=== PATIENT | male | born 1955 | race Hispanic/Latino ===

== ENCOUNTER 2018-05-01 09:25 | Inpatient (IN) | payer OTHER ==
[2018-05-01] MEDS ORDERED: ZOFRAN IV ONE ×2 (09:38→12:09)
[2018-05-01] MEDS ORDERED: ZOFRAN ONE (09:39)
[2018-05-01 09:52] LABS: Basophils # (Auto) 0.1 K/mm3 (0.0-0.1); Basophils % (Auto) 1.1 % (0.0-1.8); Eosinophils # (Auto) 0.2 K/mm3 (0.0-0.4); Eosinophils % (Auto) 3.2 % (0.0-4.3); Hematocrit 48.6 % (35.5-45.6); Hemoglobin 16.7 gm/dl (11.8-15.2); Lymphocytes # (Auto) 2.5 K/mm3 (1.2-5.4); Lymphocytes % (Auto) 32.3 % (13.4-35.0); Mean Corpuscular HGB Conc 34 % (32-34); Mean Corpuscular Volume 93 fl (84-94); Monocytes # (Auto) 0.6 K/mm3 (0.0-0.8); Monocytes % (Auto) 7.9 % (0.0-7.3); Platelet Count 244 K/mm3 (140-440); Red Blood Count 5.24 M/mm3 (3.65-5.03); Red Cell Distribution Width 13.9 % (13.2-15.2)
[2018-05-01 10:12] LABS: BUN/Creatinine Ratio 12; Blood Urea Nitrogen 7 mg/dL (9-20); Calcium 9.4 mg/dL (8.4-10.2); Hemolysis Index 63
[2018-05-01 10:16] LABS: Alanine Aminotransferase 17 units/L (7-56); Albumin 4.5 g/dL (3.9-5)
--- NOTE | 2018-05-01 10:17 | XRay Report ---
Single view chest: History: Hypertension. Findings: Normal cardiomediastinal silhouette. Trachea is midline. No consolidation, pneumothorax or pleural effusion. Impression: No acute cardiopulmonary findings.
[2018-05-01 10:18] LABS: Bilirubin,Direct < 0.2 mg/dL (0-0.2); INR 0.87 (0.87-1.13); Partial Thromboplastin Time 33.2 Sec. (24.2-36.6)
[2018-05-01] MEDS ORDERED: REGLAN ONE (10:56)
[2018-05-01] MEDS ORDERED: REGLAN IV ONE ×2 (10:58→12:09)
--- NOTE | 2018-05-01 11:48 | Cat Scan Report ---
CTA of neck and CTA of head: History: Left periorbital pain and facial tingling. Findings: The left subclavian origin is from the arch of the aorta and the right subclavian from the innominate. Bilaterally origin and course of vertebral arteries appears normal. Vertebral arteries originate from subclavian. Origin and course of right and left common carotid artery appears normal. The bulbs appears unremarkable with mild calcification along the outer wall. The proximal right and left internal carotid artery are tortuous however no stenosis or plaque formation is seen. The intracavernous portion of the internal carotid artery and the supraclinoid appears normal. Right and left middle cerebral and anterior cerebral and basilar artery appears unremarkable. Impression: No evidence of significant stenoses or plaque formation at the common, internal carotid, vertebral and cerebral arteries.
[2018-05-01] MEDS ORDERED: ZOFRAN IV PRN (11:55)
[2018-05-01] MEDS ORDERED: DULCOLAX PR PRN (11:55)
[2018-05-01] MEDS ORDERED: MILK OF MAGNESIA PO PRN (11:55)
[2018-05-01] MEDS ORDERED: REGLAN PO PRN (11:55)
[2018-05-01] MEDS ORDERED: PHENERGAN PR PRN (11:55)
[2018-05-01] MEDS ORDERED: TYLENOL PO PRN (11:55)
--- NOTE | 2018-05-01 11:55 | Cat Scan Report ---
CT scan of head without IV contrast: History: Neuro deficits. Findings: Ventricles are normal in size and midline in location. No evidence of acute each kidney, hemorrhage or mass. No extra-axial fluid collection. Normal brainstem and cerebellum. Normal sinuses. Impression: No acute intracranial abnormality.
--- NOTE | 2018-05-01 11:58 | History and Physical Report ---
History of Present Illness Chief complaint: Im weak, and i cant walk History of present illness: 62 YO Male with Obesity, Nicotine Dependence, HTN, DM, HBV presents to ED for evaluation. Pt states that he was in his usual state of health as bedtime which was around 2000 hrs. Upon awaking from sleep this morning around 0230 hrs with Left facial weakness, slurred speech, headache, as well as difficulty with ambulation. Pt reports that he had similar symptoms 2 days ago. EMS was later notified, and upon arrival the patient was found to have neurologic deficits. A code stroke was called and the patient transported to [facility]. Pt seen and evaluated in ED and found to have symptoms consistent with CVA. Pt admitted to telemetry and initiated on CVA protocol. Neurology consulted in ED. Teleneurology consulted. Pt is outside therapeutic window to TPA at time of my exam. Past History Past Medical History: diabetes, hepatitis, hypertension Past Surgical History: Other (Right Leg surgery) Social history: , smoking Family history: diabetes, hypertension Medications and Allergies Allergies Allergy/AdvReac Type Severity Reaction Status Date / Time No Known Allergies Allergy Verified 05/01/18 09:27 Home Medications Medication Instructions Recorded Confirmed Last Taken Type Aspirin [Aspirin BABY CHEW TAB] 81 mg PO QDAY 12/21/12 05/01/18 05/01/18 History Gabapentin 300 mg PO TID 05/01/18 05/01/18 Unknown History Losartan [Cozaar] 25 mg PO QDAY 05/01/18 05/01/18 05/01/18 History Review of Systems Constitutional: no weight loss, no weight gain, no fever, no chills Ears, nose, mouth and throat: no ear pain, no ear discharge, no tinnitis, no decreased hearing, no nose pain, no nasal congestion Cardiovascular: no chest pain, no orthopnea, no palpitations, no rapid/irregular heart beat, no edema, no syncope Respiratory: no cough, no cough with sputum, no excessive sputum, no hemoptysis, no shortness of breath Gastrointestinal: nausea, no abdominal pain, no vomiting, no diarrhea Genitourinary Male: no hematuria, no flank pain, no discharge, no urinary frequency, no urinary hesitancy Rectal: no pain, no incontinence, no bleeding Musculoskeletal: no neck pain, no shooting arm pain, no arm numbness/tingling, no low back pain Integumentary: no rash, no pruritis, no redness, no sores, no wounds Neurological: weakness, ataxia, lack of coordination, headaches, change in speech, gait dysfunction, motor disturbance Psychiatric: anxiety, no memory loss, no change in sleep habits, no sleep disturbances, no insomnia Endocrine: no cold intolerance, no heat intolerance, no polyphagia, no excessive thirst, no polydipsia Hematologic/Lymphatic: no easy bruising, no easy bleeding, no lymphadenopathy, no lymphedema Allergic/Immunologic: no urticaria, no allergic rhinitis, no wheezing, no persistent infections, no anaphylaxis Exam - Constitutional Vitals: Temp Pulse Resp BP Pulse Ox 98 F 60 16 147/79 100 05/01/18 11:00 05/01/18 11:00 05/01/18 11:00 05/01/18 11:00 05/01/18 11:00 General appearance: Present: mild distress - EENT Eyes: Present: PERRL ENT: hearing intact, clear oral mucosa - Neck Neck: Present: supple, normal ROM - Respiratory Respiratory effort: normal Respiratory: bilateral: CTA - Cardiovascular Heart Sounds: Present: S1 & S2. Absent: rub, click - Extremities Extremities: pulses symmetrical, No edema Peripheral Pulses: within normal limits - Abdominal General gastrointestinal: Present: soft, non-tender, non-distended, normal bowel sounds Male genitourinary: Present: normal - Integumentary Integumentary: Present: clear, warm, dry - Musculoskeletal Musculoskeletal: generalized weakness - Psychiatric Psychiatric: appropriate mood/affect, intact judgment & insight - Neurologic Neurologic: CNII-XII intact, moves all extremities, no gait normal Results - Labs CBC & Chem 7: 05/01/18 09:37 05/01/18 09:37 Labs: Abnormal lab results 05/01/18 05/01/18 Range/Units 09:37 09:37 RBC 5.24 H (3.65-5.03) M/mm3 Hgb 16.7 H (11.8-15.2) gm/dl Hct 48.6 H (35.5-45.6) % [place] % (Auto) 7.9 H (0.0-7.3) % BUN 7 L (9-20) mg/dL Creatinine 0.6 L (0.8-1.5) mg/dL Glucose 110 H (75-100) mg/dL Assessment and Plan - Patient Problems (1) CVA (cerebral vascular accident) Current Visit: Yes Status: Acute Qualifiers: Precerebral and cerebral artery: middle cerebral artery Laterality of affected vessel: left Plan to address problem: Admit to telemetry: CT head, MRI Brain, MRA Brain, Echo, Carotid Doppler, statin therapy, Lipid panel, PT/OT/ Speech, antiplatelet therapy, (2) HTN (hypertension) Current Visit: Yes Status: Acute Qualifiers: Hypertension type: essential hypertension Qualified Code(s): I10 - Essential (primary) hypertension Plan to address problem: Monitor BP q shift, permissive hypertension overnight. (3) Diabetes Current Visit: Yes Status: Acute Plan to address problem: ADA diet, insulin, accu check (4) Hepatitis Current Visit: Yes Status: Acute Plan to address problem: Outpatient GI F/U. (5) DVT prophylaxis Current Visit: Yes Status: Acute Plan to address problem: SCD to BLE while in bed.
[2018-05-01] MEDS ORDERED: ATIVAN IV PRN (12:10)
--- NOTE | 2018-05-01 12:34 | Emergency Department Report ---
ED Neuro Deficit HPI - General Chief Complaint: Neuro Symptoms/Deficit Stated Complaint: POSS STROKE Time Seen by Provider: 05/01/18 09:29 Source: patient, EMS Mode of arrival: Stretcher Limitations: No Limitations - History of Present Illness Initial Comments: 62-year-old male who I called a code stroke on based on his EMS report. He was hypertensive in the field. He had a headache. There was question of a bystander or family member thinking he had left facial weakness. He had difficulty walking this was based on the EMS report. The patient arrived at this facility awake and able to provide a reasonably detailed detailed history. He was bit anxious. However he stated to me that he had persistent left retro-orbital orbital type pain. He denied prior history of migraine. He states that he had similar pain 2 days ago (on Sunday). He has not had previous headaches like this before. This morning he awoke at about 2:30 with similar headache pain. It was moderate in intensity. He got out of bed at about that time and noted he was having some difficulty walking and felt like he was not well coordinated. He admitted some facial tingling but was not aware of any tripping. He denied any polo upper or lower extremity weakness. He had no peripheral sensory symptoms. He denied visual change. Patient has a history of hepatitis B which was acute and he was hospitalized here for the same. He has a history of hypertension. His compliance with medication seems somewhat questionable. He states he's been following up with the [facility]. He states he was told that his liver function has returned to normal. He has no prior history of stroke. No family history of aneurysm. -: Gradual, days(s) Location: left face (paresthesia) History of same: No Place: home Quality: tingling Improves With: none Worsens With: none On Anticoagulants: No Context: other (hypertension) Associated Symptoms: denies other symptoms (except nausea), nausea/vomiting Treatments Prior to Arrival: none - Related Data Home Medications: Home Medications Medication Instructions Recorded Confirmed Last Taken Aspirin [Aspirin BABY CHEW TAB] 81 mg PO QDAY 12/21/12 05/01/18 05/01/18 Gabapentin 300 mg PO TID 05/01/18 05/01/18 Unknown Losartan [Cozaar] 25 mg PO QDAY 05/01/18 05/01/18 05/01/18 Allergies/Adverse Reactions: Allergies Allergy/AdvReac Type Severity Reaction Status Date / Time No Known Allergies Allergy Verified 05/01/18 09:27 ED Review of Systems ROS: Stated complaint: POSS STROKE Other details as noted in HPI Constitutional: denies: chills, fever Eyes: denies: eye pain, eye discharge, vision change ENT: denies: ear pain, throat pain Respiratory: denies: cough, shortness of breath, wheezing Cardiovascular: denies: chest pain, palpitations Endocrine: no symptoms reported Gastrointestinal: denies: abdominal pain, nausea, diarrhea Genitourinary: denies: urgency, dysuria Musculoskeletal: denies: back pain, joint swelling, arthralgia Skin: denies: rash, lesions Neurological: headache, paresthesias, abnormal gait. denies: weakness Psychiatric: denies: anxiety, depression Hematological/Lymphatic: denies: easy bleeding, easy bruising ED Past Medical Hx - Past Medical History Previous Medical History?: Yes Hx Hypertension: Yes Hx Congestive Heart Failure: No Hx Diabetes: Yes Hx Asthma: No Hx COPD: No Hx HIV: No Additional medical history: Joint pain - Surgical History Past Surgical History?: Yes Additional Surgical History: repair fx r) leg - Social History Smoking Status: Current Every Day Smoker Substance Use Type: Alcohol - Medications Home Medications: Home Medications Medication Instructions Recorded Confirmed Last Taken Type Aspirin [Aspirin BABY CHEW TAB] 81 mg PO QDAY 12/21/12 05/01/18 05/01/18 History Gabapentin 300 mg PO TID 05/01/18 05/01/18 Unknown History Losartan [Cozaar] 25 mg PO QDAY 05/01/18 05/01/18 05/01/18 History ED Neuro Physical Exam - General Limitations: No Limitations General appearance: alert, anxious Suspected Stroke: Yes - Head Head exam: Present: atraumatic, normocephalic - Eye Eye exam: Present: normal appearance, PERRL, EOMI - ENT ENT exam: Present: mucous membranes moist - Neck Neck exam: Present: normal inspection. Absent: tenderness, meningismus - Respiratory Respiratory exam: Present: normal lung sounds bilaterally. Absent: respiratory distress - Cardiovascular Cardiovascular Exam: Present: regular rate, normal rhythm. Absent: systolic murmur, diastolic murmur, rubs, gallop - GI/Abdominal GI/Abdominal exam: Present: soft, normal bowel sounds. Absent: distended, tenderness, guarding, rebound, rigid - Rectal Rectal exam: Present: deferred - Extremities Exam Extremities exam: Present: normal inspection - Back Exam Back exam: Present: normal inspection - Neurological Exam Neurological exam: Present: alert, oriented X3, CN II-XII intact, other (gait not test). Absent: motor sensory deficit - NIHSS Assessment Interval: Baseline 1a. Level of Consciousness: alert/keenly responsive 1b. LOC Questions: answers both correctly 1c. LOC Commands: performs tasks correctly 2. Best Gaze: normal 3. Visual: no visual loss 4. Facial Palsy: normal symmetrical movement 5b. Motor Arm Right: no drift 5a. Motor Arm Left: no drift 6a. Motor Leg Left: no drift 6b. Motor Leg Right: no drift 7. Limb Ataxia: present 1 limb (mild dysmetria) 8. Sensory: normal 9. Best Language: no aphasia 10. Dysarthria: normal 11. Extinction/Inattention: no abnormality (questionably dysmetric) Total Score: 1 Stroke Severity: Minor Stroke - Psychiatric Psychiatric exam: Present: normal affect, anxious - Skin Skin exam: Present: warm, dry, intact, normal color. Absent: rash ED Course Vital Signs 05/01/18 05/01/18 09:25 11:00 Temperature 98.6 F 98 F Pulse Rate 60 60 Respiratory 16 16 Rate Blood Pressure 162/74 Blood Pressure 147/79 [Right] O2 Sat by Pulse 100 100 Oximetry - Lab Data Result diagrams: 05/01/18 09:37 05/01/18 09:37 Lab Results 05/01/18 05/01/18 05/01/18 Range/Units 09:37 09:37 09:37 WBC 7.7 (4.5-11.0) K/mm3 RBC 5.24 H (3.65-5.03) M/mm3 Hgb 16.7 H (11.8-15.2) gm/dl Hct 48.6 H (35.5-45.6) % MCV 93 (84-94) fl MCH 32 (28-32) pg MCHC 34 (32-34) % RDW 13.9 (13.2-15.2) % Plt Count 244 (140-440) K/mm3 Lymph % (Auto) 32.3 (13.4-35.0) % [place] % (Auto) 7.9 H (0.0-7.3) % Eos % (Auto) 3.2 (0.0-4.3) % Baso % (Auto) 1.1 (0.0-1.8) % Lymph # 2.5 (1.2-5.4) K/mm3 [place] # 0.6 (0.0-0.8) K/mm3 Eos # 0.2 (0.0-0.4) K/mm3 Baso # 0.1 (0.0-0.1) K/mm3 Seg Neutrophils % 55.5 (40.0-70.0) % Seg Neutrophils # 4.3 (1.8-7.7) K/mm3 PT 12.4 (12.2-14.9) Sec. INR 0.87 (0.87-1.13) APTT 33.2 (24.2-36.6) Sec. Thrombin Time (15.1-19.6) Sec. Sodium 142 (137-145) mmol/L Potassium 4.9 (3.6-5.0) mmol/L Chloride 104.0 (98-107) mmol/L Carbon Dioxide 23 (22-30) mmol/L Anion Gap 20 mmol/L BUN 7 L (9-20) mg/dL Creatinine 0.6 L (0.8-1.5) mg/dL Estimated GFR > 60 ml/min BUN/Creatinine Ratio 12 % Glucose 110 H (75-100) mg/dL Calcium 9.4 (8.4-10.2) mg/dL Magnesium (1.7-2.3) mg/dL Total Bilirubin (0.1-1.2) mg/dL Direct Bilirubin (0-0.2) mg/dL AST (5-40) units/L ALT (7-56) units/L Alkaline Phosphatase (35-129) units/L Ammonia (25-60) umol/L Troponin T < 0.010 (0.00-0.029) ng/mL NT-Pro-B Natriuret Pep (0-900) pg/mL Total Protein (6.3-8.2) g/dL Albumin (3.9-5) g/dL Albumin/Globulin Ratio % 05/01/18 05/01/18 05/01/18 Range/Units 09:37 09:37 09:37 WBC (4.5-11.0) K/mm3 RBC (3.65-5.03) M/mm3 Hgb (11.8-15.2) gm/dl Hct (35.5-45.6) % MCV (84-94) fl MCH (28-32) pg MCHC (32-34) % RDW (13.2-15.2) % Plt Count (140-440) K/mm3 Lymph % (Auto) (13.4-35.0) % [place] % (Auto) (0.0-7.3) % Eos % (Auto) (0.0-4.3) % Baso % (Auto) (0.0-1.8) % Lymph # (1.2-5.4) K/mm3 [place] # (0.0-0.8) K/mm3 Eos # (0.0-0.4) K/mm3 Baso # (0.0-0.1) K/mm3 Seg Neutrophils % (40.0-70.0) % Seg Neutrophils # (1.8-7.7) K/mm3 PT (12.2-14.9) Sec. INR (0.87-1.13) APTT (24.2-36.6) Sec. Thrombin Time 17.5 (15.1-19.6) Sec. Sodium (137-145) mmol/L Potassium (3.6-5.0) mmol/L Chloride (98-107) mmol/L Carbon Dioxide (22-30) mmol/L Anion Gap mmol/L BUN (9-20) mg/dL Creatinine (0.8-1.5) mg/dL Estimated GFR ml/min BUN/Creatinine Ratio % Glucose (75-100) mg/dL Calcium (8.4-10.2) mg/dL Magnesium 1.90 (1.7-2.3) mg/dL Total Bilirubin 0.30 (0.1-1.2) mg/dL Direct Bilirubin < 0.2 (0-0.2) mg/dL AST 22 (5-40) units/L ALT 17 (7-56) units/L Alkaline Phosphatase 83 (35-129) units/L Ammonia 47.0 (25-60) umol/L Troponin T (0.00-0.029) ng/mL NT-Pro-B Natriuret Pep 46.41 (0-900) pg/mL Total Protein 7.4 (6.3-8.2) g/dL Albumin 4.5 (3.9-5) g/dL Albumin/Globulin Ratio 1.6 % - EKG Data -: EKG Interpreted by Me EKG shows normal: sinus rhythm, axis, intervals, QRS complexes, ST-T waves Rate: bradycardia Interpretation: no acute changes - Radiology Data Radiology results: report reviewed (CT of the head normal per Dr. Buenrostro, CT and she had a head and neck normal per Dr. Buenrostro) - Medical Decision Making I discussed this case in detail with the tele neurologist food and nutrition services assistant. They stated the patient was not a TPA candidate. I certainly concur. He is outside the window for intravenous TPA clearly. It is a possibility that he may have had a stroke to affect his history circulation. An atypical migraine was considered. A cerebral aneurysm was considered. Vascular abnormality was reasonably exclude with angiography. The patient was admitted to Dr. Wilkinson's service for further care and stroke evaluation. He did have some intractable nausea here in the emergency department. However, his blood pressure did not reach a level where reduction was appropriate. - Thrombolytic Inclusion/Exclusion Thrombolytic Exclusion Criteria: Symptom Onset > 3 Hours (greater than 6 hours) Critical Care Time: Yes Critical care time in (mins) excluding proc time.: 70 Critical care attestation.: If time is entered above; I have spent that time in minutes in the direct care of this critically ill patient, excluding procedure time. ED Disposition Clinical Impression: Gait disturbance Cephalalgia Qualifiers: Headache type: unspecified Headache chronicity pattern: acute headache Intractability: intractable Qualified Code(s): R51 - Headache Intractable nausea and vomiting Qualifiers: Vomiting type: unspecified Qualified Code(s): R11.2 - Nausea with vomiting, u nspecified Disposition: 09 OP ADMIT IP TO THIS HOSP Is pt being admited?: Yes Does the pt Need Aspirin: Yes Condition: Stable Referrals: PRADIP MASON MD [Primary Care Provider] - 3-5 Days Time of Disposition: 12:42
[2018-05-01] MEDS ORDERED: ATIVAN ONE (13:01)
[2018-05-01] MEDS ORDERED: NON-FORMULARY (Gabapentin 300 MG) PO SCH (14:00)
--- NOTE | 2018-05-01 14:48 | XRay Report ---
Abdomen 2 views: History: Nausea. Findings: Minimal air in small and large bowel. No free intraperitoneal air. Contrast in collecting system of kidneys and bladder from previous CT study. No hydronephrosis. Impression: Essentially negative study.
--- NOTE | 2018-05-01 14:53 | Magnetic Resonance Report ---
MRI BRAIN WITHOUT CONTRAST: 05/01/18 11:55:00 CLINICAL: Stroke. TECHNIQUE: Axial diffusion, T1, T2, gradient echo T2*, coronal and axial FLAIR and sagittal T1 sequences on a 1.5 Katina magnet. FINDINGS: Motion degrades the quality the exam on some of the sequences. The ventricles and sulci are slightly large for age. No restricted diffusion. Mild bilateral multifocal subcortical white matter hyperintensities on FLAIR and T2. No other abnormal signal. No microbleeds on the gradient-echo sequence. No mass or mass effect. No hemorrhage, edema or extra-axial collection. Normal pituitary and optic chiasm. The brainstem and cerebellum are normal. Intact vascular flow voids. Normal sinuses. The orbits, and soft tissues are normal. Normal calvarium and skull base. IMPRESSION: No acute change. Mild global cortical atrophy and mild bilateral nonspecific multifocal white matter hyperintensities on FLAIR and T2.
--- NOTE | 2018-05-01 14:55 | Magnetic Resonance Report ---
MRA HEAD WITHOUT CONTRAST: 05/01/18 11:55:00 CLINICAL: Stroke. TECHNIQUE: Axial 3-D [id number] MR angiography of the [place] with review of axial source images. FINDINGS: Mild motion degrades the quality of the exam. Intact [place] with no aneurysm, stenosis or occlusion. Symmetric blood flow in the anterior, middle and posterior cerebral arteries. Normal basilar and vertebral arteries. IMPRESSION: Normal study.
--- NOTE | 2018-05-01 15:00 | Vascular Lab Report ---
PROCEDURE: VL CAROTID DUPLEX BILAT TECHNIQUE: Duplex Doppler ultrasound of the common, internal and external carotid arteries and the v ertebral arteries was performed bilaterally. Carlson scale imaging, velocity spectral waveform analysis, and color flow Doppler were employed. HISTORY: stroke COMPARISONS: None . Note: Measurement of carotid stenosis is based on flow velocity values that correlate with the [place] Symptomatic Carotid Endarterectomy Trial (NASCET) based stenosis criteria using the internal carotid artery diameter as the denominator for stenosis calculation. FINDINGS: RIGHT carotid artery: Velocities: ICA PSV: 91 cm/sec ICA End diastolic: 34 cm/sec CCA PSV: 116 cm/sec IC/CC ratio: 0. 78 Plaque/color flow: Mild heterogeneous plaque without significant spectral broadening or abnormal col or flow . Stenosis less than 50%. RIGHT vertebral artery: Antegrade systolic and diastolic flow LEFT carotid artery: Velocities: ICA PSV: 82 cm/sec ICA End diastolic: 35 cm/sec CCA PSV: 101 cm/sec IC/CC ratio: 0. 81 Plaque/color flow: Mild heterogeneous plaque without significant spectral broadening or abnormal col or flow . Stenosis less than 50%. LEFT vertebral artery: Antegrade systolic and diastolic flow IMPRESSION: 1. RIGHT carotid: No hemodynamically significant (less than 50 percent) internal carotid artery hayley nosis. 2. LEFT carotid: No hemodynamically significant (less than 50 percent) internal carotid artery sten osis. 3. Vertebral arteries: Bilaterally antegrade. This document is electronically signed by Julian Pantoja MD., May 01 2018 02:57:39 PM ET
[2018-05-01] MEDS: NEURONTIN PO SCH ×2 (17:05→21:08)
--- NOTE | 2018-05-01 19:53 | Consultation ---
History of Present Illness Consult date: 05/01/18 Requesting physician: DARIN RASHEED Reason for Consult: eye pain, imbalance, left dysmetria and left V2,3 numbness History of present illness: This 62 year old rt. handed male presented to ER this a.m. having awakened from sleep with severe left eye pain. He then noticed that he had a great deal of trouble arising from bed as he was dizzy and felt like falling. With the dizziness he also noted nausea and vomiting, as well as numbness of the left face, cheek and chin. He then noted that he could not get his left arm to coordinate properly. The eye pain resolved, but nausea, vomiting and dizziness continue as well as facial numbness. Pt.'s feels that it has progressed, as he cannot stand up on his own. The pt. has a history of hypertension. He was taking ASA 81 mg daily until 2 weeks ago when he saw his doctor at the [facility] who ordered Valsartan for his blood pressure. He then stopped the ASA in the a.m. in favor of the BP med. The patient's father had several strokes. The pt. is also a 40 pack year smoker. There is no history of recent head trauma or accident. Past History Past Medical History: diabetes, hepatitis, hypertension Past Surgical History: Other (Right Leg surgery) Social history: , smoking Family history: cancer, diabetes, hypertension, stroke Medications and Allergies Allergies Allergy/AdvReac Type Severity Reaction Status Date / Time No Known Allergies Allergy Verified 05/01/18 09:27 Home Medications Medication Instructions Recorded Confirmed Last Taken Type Aspirin [Aspirin BABY CHEW TAB] 81 mg PO QDAY 12/21/12 05/01/18 05/01/18 History Gabapentin 300 mg PO TID 05/01/18 05/01/18 Unknown History Losartan [Cozaar] 25 mg PO QDAY 05/01/18 05/01/18 05/01/18 History Active Meds: Active Medications Acetaminophen (Tylenol) 650 mg PO Q4H PRN PRN Reason: Pain, Mild (1-3) Aspirin (Aspirin) 325 mg PO QDAY TRACY Atorvastatin Calcium (Lipitor) 40 mg PO QHS TRACY Bisacodyl (Dulcolax) 10 mg NV QDAY PRN PRN Reason: Constipation Gabapentin (Neurontin) 300 mg PO Q8HR TRACY Last Admin: 05/01/18 17:05 Dose: 300 mg Documented by: Lorazepam (Ativan) 1 mg IV Q4H PRN PRN Reason: Agitation Last Admin: 05/01/18 13:04 Dose: 1 mg Documented by: Losartan Potassium (Cozaar) 25 mg PO QDAY [facility] Magnesium Hydroxide (Milk Of Magnesia) 30 ml PO Q4H PRN PRN Reason: Constipation Metoclopramide HCl (Reglan) 10 mg PO Q6H PRN PRN Reason: Nausea And Vomiting Last Admin: 05/01/18 18:29 Dose: 10 mg Documented by: Ondansetron HCl (Zofran) 4 mg IV Q8H PRN PRN Reason: Nausea And Vomiting Promethazine HCl (Phenergan) 25 mg NV Q6H PRN PRN Reason: Nausea And Vomiting Sodium Chloride (Sodium Chloride Flush Syringe 10 Ml) 10 ml IV PRN PRN PRN Reason: LINE FLUSH Review of Systems Constitutional: no weakness, no chronic headaches Cardiovascular: no chest pain, no palpitations, no lightheadedness Respiratory: no cough, no cough with sputum, no shortness of breath Gastrointestinal: nausea, vomiting Genitourinary Male: no dysuria, no urinary frequency Musculoskeletal: no neck stiffness, no neck pain, no arm numbness/tingling, no leg numbness/tingling Integumentary: no rash, no pruritis Neurological: parathesias, numbness, ataxia, lack of coordination, balance difficulties, gait dysfunction, sensory deficit, no head injury, no weakness, no syncope, no vertigo, no double vision, no loss of vision, no hearing difficulties Psychiatric: no memory loss Physical Examination - Vital Signs Vital Signs: Vital Signs Temp Pulse Resp BP Pulse Ox 98.6 F 60 16 162/74 100 05/01/18 09:25 05/01/18 09:25 05/01/18 09:25 05/01/18 09:25 05/01/18 09:25 - Physical Exam Narrative exam: 6General - Uncomfortable because of nausea and vomiting with excessive movement. Neurological exam - speech fluent. Oriented times 3. CN's - EOMs full. no nystagmus. Face symmetric, tongue midline. Hearing intact V-2,3 on left with numbness. Motor - 5/5 throughout. No drift. Reflexes - trace throughout. Sensory - intact in all 4 limbs. Intact to temp. Coordination - FTN with marked dysmetria on the left. Fine finger movements and Mark intact bilaterally - Assessment Assessment Interval: Baseline - Level of Consciousness 1a. Level of Consciousness: alert/keenly responsive - LOC Questions 1b. LOC Questions: answers both correctly - LOC Command 1c. LOC Commands: performs tasks correctly - Best Gaze 2. Best Gaze: normal - Visual 3. Visual: no visual loss - Facial Palsy 4. Facial Palsy: normal symmetrical movement - Motor Arm 5b. Motor Arm Right: no drift - Motor Leg 6a. Motor Leg Left: no drift - Limb Ataxia 7. Limb Ataxia: present 1 limb (mild dysmetria) - Sensory 8. Sensory: normal - Best Language 9. Best Language: no aphasia - Dysarthria 10. Dysarthria: normal - Extinction and Inattention 11. Extinction/Inattention: no abnormality (questionably dysmetric) Results - Laboratory Findings CBC and BMP: 05/01/18 09:37 05/01/18 09:37 Abnormal Lab Findings: Abnormal Labs 05/01/18 05/01/18 09:37 09:37 RBC 5.24 H Hgb 16.7 H Hct 48.6 H [place] % (Auto) 7.9 H BUN 7 L Creatinine 0.6 L Glucose 110 H Assessment and Plan 62 year old male with hx of eye pain, left facial numbness, left dysmetria, nausea and vomiting. MRI and MRA are unremarkable. CTA head and neck are normal. The patient has definite posterior fossa signs and symptoms. If not ischemic, possibly inflammatory or neoplastic in origin. Plan - MRI with contrast. Consider LP if this is not revealing.
[2018-05-01] MEDS ORDERED: REGLAN IV PRN (19:54)
[2018-05-01] MEDS: SODIUM CHLORIDE FLUSH SYRINGE 10 ML IV PRN (21:09)
[2018-05-02] MEDS: NEURONTIN PO SCH ×3 (06:08→21:38)
[2018-05-02 08:10] LABS: Chol/HDL Ratio 4.32 %
[2018-05-02] MEDS: ASPIRIN PO SCH (10:21)
[2018-05-02] MEDS: COZAAR PO SCH (10:21)
--- NOTE | 2018-05-02 11:35 | Progress Note ---
Assessment and Plan Assessment and plan: Left dysmetria/ataxia. MRI/MRA and CTA of head and neck are unremarkable. Neurology following and wants MRI with contrast. Consider LP. Hypertension. Resume antihypertensive medications. Diabetes mellitus type 2. Continue Accu-Cheks and sinusitis. Hepatitis. Outpatient GI follow-up. Tobacco abuse. Patient has been counseled on tobacco cessation. History Interval history: Patient still complains of ataxia. No new issues overnight. Hospitalist Physical - Constitutional Vitals: Temp Pulse Resp BP Pulse Ox 98.4 F 64 16 131/71 92 05/02/18 09:20 05/02/18 09:20 05/02/18 09:20 05/02/18 09:20 05/02/18 09:20 General appearance: Present: mild distress - EENT Eyes: Present: PERRL, EOM intact ENT: hearing intact, clear oral mucosa, dentition normal - Neck Neck: Present: supple, normal ROM - Respiratory Respiratory effort: normal Respiratory: bilateral: CTA - Cardiovascular Rhythm: regular Heart Sounds: Present: S1 & S2. Absent: gallop, rub - Extremities Extremities: no ischemia, No edema, Full ROM - Abdominal General gastrointestinal: soft, non-tender, non-distended, normal bowel sounds - Integumentary Integumentary: Present: clear, warm, dry - Neurologic Neurologic: CNII-XII intact, moves all extremities Results - Labs CBC & Chem 7: 05/01/18 09:37 05/01/18 09:37 Labs: Laboratory Last Values WBC 7.7 K/mm3 (4.5-11.0) 05/01/18 09:37 RBC 5.24 M/mm3 (3.65-5.03) H 05/01/18 09:37 Hgb 16.7 gm/dl (11.8-15.2) H 05/01/18 09:37 Hct 48.6 % (35.5-45.6) H 05/01/18 09:37 MCV 93 fl (84-94) 05/01/18 09:37 MCH 32 pg (28-32) 05/01/18 09:37 MCHC 34 % (32-34) 05/01/18 09:37 RDW 13.9 % (13.2-15.2) 05/01/18 09:37 Plt Count 244 K/mm3 (140-440) 05/01/18 09:37 Lymph % (Auto) 32.3 % (13.4-35.0) 05/01/18 09:37 [place] % (Auto) 7.9 % (0.0-7.3) H 05/01/18 09:37 Eos % (Auto) 3.2 % (0.0-4.3) 05/01/18 09:37 Baso % (Auto) 1.1 % (0.0-1.8) 05/01/18 09:37 Lymph # 2.5 K/mm3 (1.2-5.4) 05/01/18 09:37 [place] # 0.6 K/mm3 (0.0-0.8) 05/01/18 09:37 Eos # 0.2 K/mm3 (0.0-0.4) 05/01/18 09:37 Baso # 0.1 K/mm3 (0.0-0.1) 05/01/18 09:37 Seg Neutrophils % 55.5 % (40.0-70.0) 05/01/18 09:37 Seg Neutrophils # 4.3 K/mm3 (1.8-7.7) 05/01/18 09:37 PT 12.4 Sec. (12.2-14.9) 05/01/18 09:37 INR 0.87 (0.87-1.13) 05/01/18 09:37 APTT 33.2 Sec. (24.2-36.6) 05/01/18 09:37 Thrombin Time 17.5 Sec. (15.1-19.6) 05/01/18 09:37 Sodium 142 mmol/L (137-145) 05/01/18 09:37 Potassium 4.9 mmol/L (3.6-5.0) 05/01/18 09:37 Chloride 104.0 mmol/L (98-107) 05/01/18 09:37 Carbon Dioxide 23 mmol/L (22-30) 05/01/18 09:37 Anion Gap 20 mmol/L 05/01/18 09:37 BUN 7 mg/dL (9-20) L 05/01/18 09:37 Creatinine 0.6 mg/dL (0.8-1.5) L 05/01/18 09:37 Estimated GFR > 60 ml/min 05/01/18 09:37 BUN/Creatinine Ratio 12 % 05/01/18 09:37 Glucose 110 mg/dL (75-100) H 05/01/18 09:37 Calcium 9.4 mg/dL (8.4-10.2) 05/01/18 09:37 Magnesium 1.90 mg/dL (1.7-2.3) 05/01/18 09:37 Total Bilirubin 0.30 mg/dL (0.1-1.2) 05/01/18 09:37 Direct Bilirubin < 0.2 mg/dL (0-0.2) 05/01/18 09:37 AST 22 units/L (5-40) 05/01/18 09:37 ALT 17 units/L (7-56) 05/01/18 09:37 Alkaline Phosphatase 83 units/L (35-129) 05/01/18 09:37 Ammonia 47.0 umol/L (25-60) 05/01/18 09:37 Troponin T < 0.010 ng/mL (0.00-0.029) 05/01/18 09:37 NT-Pro-B Natriuret Pep 46.41 pg/mL (0-900) 05/01/18 09:37 Total Protein 7.4 g/dL (6.3-8.2) 05/01/18 09:37 Albumin 4.5 g/dL (3.9-5) 05/01/18 09:37 Albumin/Globulin Ratio 1.6 % 05/01/18 09:37 Triglycerides 96 mg/dL (2-149) 05/02/18 07:18 Cholesterol 173 mg/dL (50-199) 05/02/18 07:18 LDL Cholesterol Direct 138 mg/dL (50-130) H 05/02/18 07:18 HDL Cholesterol 40 mg/dL (40-59) 05/02/18 07:18 Cholesterol/HDL Ratio 4.32 % 05/02/18 07:18
--- NOTE | 2018-05-02 13:46 | Magnetic Resonance Report ---
MR BRAIN WITH CONTRAST History: Left facial numbness, incoordination, nausea and vomiting. Findings: T1 axial and coronal images following IV contrast were reviewed and compared to the noncontrast MR brain dated 05/01/18. Post contrast MRI demonstrates no evidence for abnormal enhancement. The posterior fossa, base of skull and Meckel's cave regions are unremarkable. Impression: Unremarkable MR brain with contrast. No mass or abnormal enhancement is detected.
--- NOTE | 2018-05-02 15:14 | Progress Note ---
Assessment and Plan 62 year old male with hx of eye pain, left facial numbness, left dysmetria, nausea and vomiting. MRI and MRA are unremarkable. CTA head and neck are normal. The patient has definite posterior fossa signs and symptoms. If not ischemic, possibly inflammatory or neoplastic in origin. MRI with contrast was also neg. Symptoms remain except for nausea which has improved. Cervical cord disease could also produce these symptoms as the tri geminal tract and MLF travel to the cervial cord. Plan - MRI cervical cord, with and without contrast. Subjective Date of service: 05/02/18 Principal diagnosis: ataxia, facial numbness Interval history: 62 year old male with hx of eye pain, left facial numbness, left dysmetria, ataxia, nausea and vomiting. Today the patient feels that his nausea is much better. No further vomiting. Notes diplopia at a distance, occasionally skewed. facial numbness, dysmetria and ataxia persist. Objective - Exam Narrative Exam: 6General - Uncomfortable because of nausea and vomiting with excessive movement. Neurological exam - speech fluent. Oriented times 3. CN's - EOMs full. no nystagmus. Face symmetric, tongue midline. Hearing intact V-2,3 on left with numbness. No obvious change in EOMs. no occulomotor weakness detected. Motor - 5/5 throughout. No drift. Reflexes - trace throughout. Sensory - intact in all 4 limbs. Intact to temp. Coordination - FTN with marked dysmetria on the left. Fine finger movements and Mark intact bilaterally HKS a bit wobbley on left. - Vital Sign Vital Signs - 12hr 05/02/18 05/02/18 05/02/18 04:00 09:20 13:18 Temperature 98.3 F 98.4 F 98.2 F Pulse Rate 61 64 61 Respiratory 16 16 18 Rate Blood Pressure 131/71 132/68 Blood Pressure 131/75 [Right] O2 Sat by Pulse 88 92 94 Oximetry 05/02/18 14:06 Temperature Pulse Rate Respiratory Rate Blood Pressure Blood Pressure [Right] O2 Sat by Pulse 95 Oximetry - Laboratory Findings CBC and BMP: 05/01/18 09:37 05/01/18 09:37 Abnormal Lab Findings: Abnormal Labs 05/01/18 05/01/18 05/02/18 09:37 09:37 07:18 RBC 5.24 H Hgb 16.7 H Hct 48.6 H [place] % (Auto) 7.9 H BUN 7 L Creatinine 0.6 L Glucose 110 H LDL Cholesterol Direct 138 H
[2018-05-02] MEDS: SODIUM CHLORIDE FLUSH SYRINGE 10 ML IV PRN (21:38)
[2018-05-03] MEDS: NEURONTIN PO SCH ×3 (06:40→21:13)
[2018-05-03] MEDS: COZAAR PO SCH (09:54)
[2018-05-03] MEDS: ASPIRIN PO SCH (09:54)
--- NOTE | 2018-05-03 11:54 | Magnetic Resonance Report ---
MR CERVICAL SPINE WITHOUT CONTRAST HISTORY: Left facial numbness and incoordination. TECHNIQUE: Axial T2 and T2 gradient. Sagittal T1, T2 and STIR. COMPARISON: None. FINDINGS: The cervical spinal cord is normal size and signal intensity throughout. No abnormal intramedullary signal is detected. Normal height and alignment of the cervical vertebral bodies. Normal bone marrow signal. There is mild diffuse disc desiccation. The facet joints are in appropriate relationship. Minimal diffuse facet arthropathy is identified. No hypertrophic changes. The paraspinal soft tissues are within normal limits. C2-3: No significant abnormality. C3-4: No significant abnormality. C4-5: No significant abnormality. C5-6: No significant abnormality. C6-7: No significant abnormality. C7-T1: No significant abnormality. No abnormal enhancement following IV contrast is demonstrated. IMPRESSION: Minimal degenerative disc disease and facet arthropathy at all levels. No evidence for abnormal enhancement.
--- NOTE | 2018-05-03 13:13 | Progress Note ---
Assessment and Plan Assessment and plan: Left dysmetria/ataxia. MRI/MRA with and without contrast and CTA of head and neck are unremarkable. Neurology following and considering LP Hypertension. Resume antihypertensive medications. Diabetes mellitus type 2. Continue Accu-Cheks and sinusitis. Hepatitis. Outpatient GI follow-up. Tobacco abuse. Patient has been counseled on tobacco cessation. Disposition. manager customer reports that insurance is requesting transfer to a hospital in [facility]. History Interval history: Patient still complains of ataxia. No new issues overnight. Hospitalist Physical - Constitutional Vitals: Temp Pulse Resp BP Pulse Ox 97.9 F 61 20 126/83 93 05/03/18 08:46 05/03/18 08:46 05/03/18 08:46 05/03/18 09:54 05/03/18 08:46 General appearance: Present: no acute distress - EENT Eyes: Present: PERRL, EOM intact ENT: hearing intact, clear oral mucosa, dentition normal - Neck Neck: Present: supple, normal ROM - Respiratory Respiratory effort: normal Respiratory: bilateral: CTA - Cardiovascular Rhythm: regular Heart Sounds: Present: S1 & S2. Absent: gallop, rub - Extremities Extremities: no ischemia, No edema, Full ROM - Abdominal General gastrointestinal: soft, non-tender, non-distended, normal bowel sounds - Integumentary Integumentary: Present: clear, warm, dry - Neurologic Neurologic: CNII-XII intact, moves all extremities Results - Labs CBC & Chem 7: 05/01/18 09:37 05/01/18 09:37 Labs: Laboratory Last Values WBC 7.7 K/mm3 (4.5-11.0) 05/01/18 09:37 RBC 5.24 M/mm3 (3.65-5.03) H 05/01/18 09:37 Hgb 16.7 gm/dl (11.8-15.2) H 05/01/18 09:37 Hct 48.6 % (35.5-45.6) H 05/01/18 09:37 MCV 93 fl (84-94) 05/01/18 09:37 MCH 32 pg (28-32) 05/01/18 09:37 MCHC 34 % (32-34) 05/01/18 09:37 RDW 13.9 % (13.2-15.2) 05/01/18 09:37 Plt Count 244 K/mm3 (140-440) 05/01/18 09:37 Lymph % (Auto) 32.3 % (13.4-35.0) 05/01/18 09:37 [place] % (Auto) 7.9 % (0.0-7.3) H 05/01/18 09:37 Eos % (Auto) 3.2 % (0.0-4.3) 05/01/18 09:37 Baso % (Auto) 1.1 % (0.0-1.8) 05/01/18 09:37 Lymph # 2.5 K/mm3 (1.2-5.4) 05/01/18 09:37 [place] # 0.6 K/mm3 (0.0-0.8) 05/01/18 09:37 Eos # 0.2 K/mm3 (0.0-0.4) 05/01/18 09:37 Baso # 0.1 K/mm3 (0.0-0.1) 05/01/18 09:37 Seg Neutrophils % 55.5 % (40.0-70.0) 05/01/18 09:37 Seg Neutrophils # 4.3 K/mm3 (1.8-7.7) 05/01/18 09:37 PT 12.4 Sec. (12.2-14.9) 05/01/18 09:37 INR 0.87 (0.87-1.13) 05/01/18 09:37 APTT 33.2 Sec. (24.2-36.6) 05/01/18 09:37 Thrombin Time 17.5 Sec. (15.1-19.6) 05/01/18 09:37 Sodium 142 mmol/L (137-145) 05/01/18 09:37 Potassium 4.9 mmol/L (3.6-5.0) 05/01/18 09:37 Chloride 104.0 mmol/L (98-107) 05/01/18 09:37 Carbon Dioxide 23 mmol/L (22-30) 05/01/18 09:37 Anion Gap 20 mmol/L 05/01/18 09:37 BUN 7 mg/dL (9-20) L 05/01/18 09:37 Creatinine 0.6 mg/dL (0.8-1.5) L 05/01/18 09:37 Estimated GFR > 60 ml/min 05/01/18 09:37 BUN/Creatinine Ratio 12 % 05/01/18 09:37 Glucose 110 mg/dL (75-100) H 05/01/18 09:37 POC Glucose 96 (70-105) 05/03/18 07:56 Calcium 9.4 mg/dL (8.4-10.2) 05/01/18 09:37 Magnesium 1.90 mg/dL (1.7-2.3) 05/01/18 09:37 Total Bilirubin 0.30 mg/dL (0.1-1.2) 05/01/18 09:37 Direct Bilirubin < 0.2 mg/dL (0-0.2) 05/01/18 09:37 AST 22 units/L (5-40) 05/01/18 09:37 ALT 17 units/L (7-56) 05/01/18 09:37 Alkaline Phosphatase 83 units/L (35-129) 05/01/18 09:37 Ammonia 47.0 umol/L (25-60) 05/01/18 09:37 Troponin T < 0.010 ng/mL (0.00-0.029) 05/01/18 09:37 NT-Pro-B Natriuret Pep 46.41 pg/mL (0-900) 05/01/18 09:37 Total Protein 7.4 g/dL (6.3-8.2) 05/01/18 09:37 Albumin 4.5 g/dL (3.9-5) 05/01/18 09:37 Albumin/Globulin Ratio 1.6 % 05/01/18 09:37 Triglycerides 96 mg/dL (2-149) 05/02/18 07:18 Cholesterol 173 mg/dL (50-199) 05/02/18 07:18 LDL Cholesterol Direct 138 mg/dL (50-130) H 05/02/18 07:18 HDL Cholesterol 40 mg/dL (40-59) 05/02/18 07:18 Cholesterol/HDL Ratio 4.32 % 05/02/18 07:18
[2018-05-04] MEDS: NEURONTIN PO SCH ×3 (05:54→21:35)
[2018-05-04] MEDS: COZAAR PO SCH (10:05)
[2018-05-04] MEDS: ASPIRIN PO SCH (10:05)
--- NOTE | 2018-05-04 12:37 | Progress Note ---
Assessment and Plan Assessment and plan: Left dysmetria/ataxia. MRI/MRA brain with and without contrast, cervical MRI with contrast and CTA of head and neck are unremarkable. Neurology following. We will check MRI of the thoracic and lumbar spine. Hypertension. Resume antihypertensive medications. Diabetes mellitus type 2. Continue Accu-Cheks and sinusitis. Hepatitis. Outpatient GI follow-up. Tobacco abuse. Patient has been counseled on tobacco cessation. Disposition. I discussed with the caseworker protective services director at our facility the ongoing workup in progress. Patient will remain here. Peer to peer Discussion with [facility] physician on Sunday. History Interval history: Patient still complains of ataxia. No new issues overnight. Hospitalist Physical - Constitutional Vitals: Temp Pulse Resp BP Pulse Ox 98.3 F 60 24 135/78 93 05/04/18 11:17 05/04/18 11:17 05/04/18 11:17 05/04/18 11:17 05/04/18 11:17 General appearance: Present: no acute distress - EENT Eyes: Present: PERRL, EOM intact ENT: hearing intact, clear oral mucosa, dentition normal - Neck Neck: Present: supple, normal ROM - Respiratory Respiratory effort: normal Respiratory: bilateral: CTA - Cardiovascular Rhythm: regular Heart Sounds: Present: S1 & S2. Absent: gallop, rub - Extremities Extremities: no ischemia, No edema, Full ROM - Abdominal General gastrointestinal: soft, non-tender, non-distended, normal bowel sounds - Integumentary Integumentary: Present: clear, warm, dry - Neurologic Neurologic: CNII-XII intact, moves all extremities Results - Labs CBC & Chem 7: 05/01/18 09:37 05/01/18 09:37 Labs: Laboratory Last Values WBC 7.7 K/mm3 (4.5-11.0) 05/01/18 09:37 RBC 5.24 M/mm3 (3.65-5.03) H 05/01/18 09:37 Hgb 16.7 gm/dl (11.8-15.2) H 05/01/18 09:37 Hct 48.6 % (35.5-45.6) H 05/01/18 09:37 MCV 93 fl (84-94) 05/01/18 09:37 MCH 32 pg (28-32) 05/01/18 09:37 MCHC 34 % (32-34) 05/01/18 09:37 RDW 13.9 % (13.2-15.2) 05/01/18 09:37 Plt Count 244 K/mm3 (140-440) 05/01/18 09:37 Lymph % (Auto) 32.3 % (13.4-35.0) 05/01/18 09:37 [place] % (Auto) 7.9 % (0.0-7.3) H 05/01/18 09:37 Eos % (Auto) 3.2 % (0.0-4.3) 05/01/18 09:37 Baso % (Auto) 1.1 % (0.0-1.8) 05/01/18 09:37 Lymph # 2.5 K/mm3 (1.2-5.4) 05/01/18 09:37 [place] # 0.6 K/mm3 (0.0-0.8) 05/01/18 09:37 Eos # 0.2 K/mm3 (0.0-0.4) 05/01/18 09:37 Baso # 0.1 K/mm3 (0.0-0.1) 05/01/18 09:37 Seg Neutrophils % 55.5 % (40.0-70.0) 05/01/18 09:37 Seg Neutrophils # 4.3 K/mm3 (1.8-7.7) 05/01/18 09:37 PT 12.4 Sec. (12.2-14.9) 05/01/18 09:37 INR 0.87 (0.87-1.13) 05/01/18 09:37 APTT 33.2 Sec. (24.2-36.6) 05/01/18 09:37 Thrombin Time 17.5 Sec. (15.1-19.6) 05/01/18 09:37 Sodium 142 mmol/L (137-145) 05/01/18 09:37 Potassium 4.9 mmol/L (3.6-5.0) 05/01/18 09:37 Chloride 104.0 mmol/L (98-107) 05/01/18 09:37 Carbon Dioxide 23 mmol/L (22-30) 05/01/18 09:37 Anion Gap 20 mmol/L 05/01/18 09:37 BUN 7 mg/dL (9-20) L 05/01/18 09:37 Creatinine 0.6 mg/dL (0.8-1.5) L 05/01/18 09:37 Estimated GFR > 60 ml/min 05/01/18 09:37 BUN/Creatinine Ratio 12 % 05/01/18 09:37 Glucose 110 mg/dL (75-100) H 05/01/18 09:37 POC Glucose 96 (70-105) 05/03/18 07:56 Calcium 9.4 mg/dL (8.4-10.2) 05/01/18 09:37 Magnesium 1.90 mg/dL (1.7-2.3) 05/01/18 09:37 Total Bilirubin 0.30 mg/dL (0.1-1.2) 05/01/18 09:37 Direct Bilirubin < 0.2 mg/dL (0-0.2) 05/01/18 09:37 AST 22 units/L (5-40) 05/01/18 09:37 ALT 17 units/L (7-56) 05/01/18 09:37 Alkaline Phosphatase 83 units/L (35-129) 05/01/18 09:37 Ammonia 47.0 umol/L (25-60) 05/01/18 09:37 Troponin T < 0.010 ng/mL (0.00-0.029) 05/01/18 09:37 NT-Pro-B Natriuret Pep 46.41 pg/mL (0-900) 05/01/18 09:37 Total Protein 7.4 g/dL (6.3-8.2) 05/01/18 09:37 Albumin 4.5 g/dL (3.9-5) 05/01/18 09:37 Albumin/Globulin Ratio 1.6 % 05/01/18 09:37 Triglycerides 96 mg/dL (2-149) 05/02/18 07:18 Cholesterol 173 mg/dL (50-199) 05/02/18 07:18 LDL Cholesterol Direct 138 mg/dL (50-130) H 05/02/18 07:18 HDL Cholesterol 40 mg/dL (40-59) 05/02/18 07:18 Cholesterol/HDL Ratio 4.32 % 05/02/18 07:18 Vitamin B12 440.0 pg/mL (211-911) 05/03/18 13:35 TSH 1.060 mlU/mL (0.270-4.200) 05/03/18 13:35
[2018-05-05] MEDS: NEURONTIN PO SCH ×3 (06:04→21:18)
[2018-05-05] MEDS: ASPIRIN PO SCH (10:35)
[2018-05-05] MEDS: COZAAR PO SCH (10:35)
--- NOTE | 2018-05-05 11:42 | Progress Note ---
Assessment and Plan Assessment and plan: Left dysmetria/ataxia. MRI/MRA brain with and without contrast, cervical MRI with contrast and CTA of head and neck are unremarkable. Neurology following. We will check MRI of the thoracic and lumbar spine. Vertigo. We will start meclizine. Hypertension. Cont. antihypertensive medications. Diabetes mellitus type 2. Continue Accu-Cheks and sinusitis. Hepatitis. Outpatient GI follow-up. Tobacco abuse. Patient has been counseled on tobacco cessation. Disposition. I discussed with the welfare case worker director at our facility the ongoing workup in progress. Patient will remain here. Peer to peer Discussion with [facility] physician on Sunday. History Interval history: Patient still complains of ataxia. Patient also complaining of vertiginous symptoms No new issues overnight. Hospitalist Physical - Constitutional Vitals: Temp Pulse Resp BP Pulse Ox 98.2 F 64 16 131/61 93 05/05/18 09:52 05/05/18 10:35 05/05/18 09:52 05/05/18 10:35 05/05/18 09:52 General appearance: Present: no acute distress - EENT Eyes: Present: PERRL, EOM intact ENT: hearing intact, clear oral mucosa, dentition normal - Neck Neck: Present: supple, normal ROM - Respiratory Respiratory effort: normal Respiratory: bilateral: CTA - Cardiovascular Rhythm: regular Heart Sounds: Present: S1 & S2. Absent: gallop, rub - Extremities Extremities: no ischemia, No edema, Full ROM - Abdominal General gastrointestinal: soft, non-tender, non-distended, normal bowel sounds - Integumentary Integumentary: Present: clear, warm, dry - Neurologic Neurologic: CNII-XII intact, moves all extremities Results - Labs CBC & Chem 7: 05/01/18 09:37 05/01/18 09:37 Labs: Laboratory Last Values WBC 7.7 K/mm3 (4.5-11.0) 05/01/18 09:37 RBC 5.24 M/mm3 (3.65-5.03) H 05/01/18 09:37 Hgb 16.7 gm/dl (11.8-15.2) H 05/01/18 09:37 Hct 48.6 % (35.5-45.6) H 05/01/18 09:37 MCV 93 fl (84-94) 05/01/18 09:37 MCH 32 pg (28-32) 05/01/18 09:37 MCHC 34 % (32-34) 05/01/18 09:37 RDW 13.9 % (13.2-15.2) 05/01/18 09:37 Plt Count 244 K/mm3 (140-440) 05/01/18 09:37 Lymph % (Auto) 32.3 % (13.4-35.0) 05/01/18 09:37 [place] % (Auto) 7.9 % (0.0-7.3) H 05/01/18 09:37 Eos % (Auto) 3.2 % (0.0-4.3) 05/01/18 09:37 Baso % (Auto) 1.1 % (0.0-1.8) 05/01/18 09:37 Lymph # 2.5 K/mm3 (1.2-5.4) 05/01/18 09:37 [place] # 0.6 K/mm3 (0.0-0.8) 05/01/18 09:37 Eos # 0.2 K/mm3 (0.0-0.4) 05/01/18 09:37 Baso # 0.1 K/mm3 (0.0-0.1) 05/01/18 09:37 Seg Neutrophils % 55.5 % (40.0-70.0) 05/01/18 09:37 Seg Neutrophils # 4.3 K/mm3 (1.8-7.7) 05/01/18 09:37 PT 12.4 Sec. (12.2-14.9) 05/01/18 09:37 INR 0.87 (0.87-1.13) 05/01/18 09:37 APTT 33.2 Sec. (24.2-36.6) 05/01/18 09:37 Thrombin Time 17.5 Sec. (15.1-19.6) 05/01/18 09:37 Sodium 142 mmol/L (137-145) 05/01/18 09:37 Potassium 4.9 mmol/L (3.6-5.0) 05/01/18 09:37 Chloride 104.0 mmol/L (98-107) 05/01/18 09:37 Carbon Dioxide 23 mmol/L (22-30) 05/01/18 09:37 Anion Gap 20 mmol/L 05/01/18 09:37 BUN 7 mg/dL (9-20) L 05/01/18 09:37 Creatinine 0.6 mg/dL (0.8-1.5) L 05/01/18 09:37 Estimated GFR > 60 ml/min 05/01/18 09:37 BUN/Creatinine Ratio 12 % 05/01/18 09:37 Glucose 110 mg/dL (75-100) H 05/01/18 09:37 POC Glucose 96 (70-105) 05/03/18 07:56 Calcium 9.4 mg/dL (8.4-10.2) 05/01/18 09:37 Magnesium 1.90 mg/dL (1.7-2.3) 05/01/18 09:37 Total Bilirubin 0.30 mg/dL (0.1-1.2) 05/01/18 09:37 Direct Bilirubin < 0.2 mg/dL (0-0.2) 05/01/18 09:37 AST 22 units/L (5-40) 05/01/18 09:37 ALT 17 units/L (7-56) 05/01/18 09:37 Alkaline Phosphatase 83 units/L (35-129) 05/01/18 09:37 Ammonia 47.0 umol/L (25-60) 05/01/18 09:37 Troponin T < 0.010 ng/mL (0.00-0.029) 05/01/18 09:37 NT-Pro-B Natriuret Pep 46.41 pg/mL (0-900) 05/01/18 09:37 Total Protein 7.4 g/dL (6.3-8.2) 05/01/18 09:37 Albumin 4.5 g/dL (3.9-5) 05/01/18 09:37 Albumin/Globulin Ratio 1.6 % 05/01/18 09:37 Triglycerides 96 mg/dL (2-149) 05/02/18 07:18 Cholesterol 173 mg/dL (50-199) 05/02/18 07:18 LDL Cholesterol Direct 138 mg/dL (50-130) H 05/02/18 07:18 HDL Cholesterol 40 mg/dL (40-59) 05/02/18 07:18 Cholesterol/HDL Ratio 4.32 % 05/02/18 07:18 Vitamin B12 440.0 pg/mL (211-911) 05/03/18 13:35 TSH 1.060 mlU/mL (0.270-4.200) 05/03/18 13:35
[2018-05-05] MEDS: ANTIVERT PO PRN (13:10)
[2018-05-06] MEDS: NEURONTIN PO SCH ×3 (05:16→21:24)
[2018-05-06] MEDS: ASPIRIN PO SCH (09:13)
[2018-05-06] MEDS: COZAAR PO SCH (09:13)
--- NOTE | 2018-05-06 11:49 | Progress Note ---
Assessment and Plan Assessment and plan: Left dysmetria/ataxia. MRI/MRA brain with and without contrast, cervical MRI with contrast and CTA of head and neck are unremarkable. Neurology following. We will check MRI of the thoracic and lumbar spine. I discussed case with neurology who feels that patient may have demyelinating disorder associated with paraneoplastic syndrome. We will hold aspirin to perform LP. Also patient will need CT of chest to rule out neoplasm. Vertigo. We will start meclizine. Hypertension. Cont. antihypertensive medications. Diabetes mellitus type 2. Continue Accu-Cheks and sinusitis. Hepatitis. Outpatient GI follow-up. Tobacco abuse. Patient has been counseled on tobacco cessation. Disposition. I discussed with the piano case maker director at our facility the ongoing workup in progress. Patient will remain here. Peer to peer Discussion with [facility] physician on Sunday. History Interval history: Patient still complains of ataxia. Patient also complaining of vertiginous symptoms intermittently. No new issues overnight. Hospitalist Physical - Constitutional Vitals: Temp Pulse Resp BP Pulse Ox 98.0 F 54 L 16 122/63 93 05/06/18 07:25 05/06/18 07:25 05/06/18 07:25 05/06/18 07:25 05/06/18 07:25 General appearance: Present: no acute distress - EENT Eyes: Present: PERRL, EOM intact ENT: hearing intact, clear oral mucosa, dentition normal - Neck Neck: Present: supple, normal ROM - Respiratory Respiratory effort: normal Respiratory: bilateral: CTA - Cardiovascular Rhythm: regular Heart Sounds: Present: S1 & S2. Absent: gallop, rub - Extremities Extremities: no ischemia, No edema, Full ROM - Abdominal General gastrointestinal: soft, non-tender, non-distended, normal bowel sounds - Integumentary Integumentary: Present: clear, warm, dry - Neurologic Neurologic: CNII-XII intact, moves all extremities Results - Labs CBC & Chem 7: 05/01/18 09:37 05/01/18 09:37 Labs: Laboratory Last Values WBC 7.7 K/mm3 (4.5-11.0) 05/01/18 09:37 RBC 5.24 M/mm3 (3.65-5.03) H 05/01/18 09:37 Hgb 16.7 gm/dl (11.8-15.2) H 05/01/18 09:37 Hct 48.6 % (35.5-45.6) H 05/01/18 09:37 MCV 93 fl (84-94) 05/01/18 09:37 MCH 32 pg (28-32) 05/01/18 09:37 MCHC 34 % (32-34) 05/01/18 09:37 RDW 13.9 % (13.2-15.2) 05/01/18 09:37 Plt Count 244 K/mm3 (140-440) 05/01/18 09:37 Lymph % (Auto) 32.3 % (13.4-35.0) 05/01/18 09:37 [place] % (Auto) 7.9 % (0.0-7.3) H 05/01/18 09:37 Eos % (Auto) 3.2 % (0.0-4.3) 05/01/18 09:37 Baso % (Auto) 1.1 % (0.0-1.8) 05/01/18 09:37 Lymph # 2.5 K/mm3 (1.2-5.4) 05/01/18 09:37 [place] # 0.6 K/mm3 (0.0-0.8) 05/01/18 09:37 Eos # 0.2 K/mm3 (0.0-0.4) 05/01/18 09:37 Baso # 0.1 K/mm3 (0.0-0.1) 05/01/18 09:37 Seg Neutrophils % 55.5 % (40.0-70.0) 05/01/18 09:37 Seg Neutrophils # 4.3 K/mm3 (1.8-7.7) 05/01/18 09:37 PT 12.4 Sec. (12.2-14.9) 05/01/18 09:37 INR 0.87 (0.87-1.13) 05/01/18 09:37 APTT 33.2 Sec. (24.2-36.6) 05/01/18 09:37 Thrombin Time 17.5 Sec. (15.1-19.6) 05/01/18 09:37 Sodium 142 mmol/L (137-145) 05/01/18 09:37 Potassium 4.9 mmol/L (3.6-5.0) 05/01/18 09:37 Chloride 104.0 mmol/L (98-107) 05/01/18 09:37 Carbon Dioxide 23 mmol/L (22-30) 05/01/18 09:37 Anion Gap 20 mmol/L 05/01/18 09:37 BUN 7 mg/dL (9-20) L 05/01/18 09:37 Creatinine 0.6 mg/dL (0.8-1.5) L 05/01/18 09:37 Estimated GFR > 60 ml/min 05/01/18 09:37 BUN/Creatinine Ratio 12 % 05/01/18 09:37 Glucose 110 mg/dL (75-100) H 05/01/18 09:37 POC Glucose 96 (70-105) 05/03/18 07:56 Calcium 9.4 mg/dL (8.4-10.2) 05/01/18 09:37 Magnesium 1.90 mg/dL (1.7-2.3) 05/01/18 09:37 Total Bilirubin 0.30 mg/dL (0.1-1.2) 05/01/18 09:37 Direct Bilirubin < 0.2 mg/dL (0-0.2) 05/01/18 09:37 AST 22 units/L (5-40) 05/01/18 09:37 ALT 17 units/L (7-56) 05/01/18 09:37 Alkaline Phosphatase 83 units/L (35-129) 05/01/18 09:37 Ammonia 47.0 umol/L (25-60) 05/01/18 09:37 Troponin T < 0.010 ng/mL (0.00-0.029) 05/01/18 09:37 NT-Pro-B Natriuret Pep 46.41 pg/mL (0-900) 05/01/18 09:37 Total Protein 7.4 g/dL (6.3-8.2) 05/01/18 09:37 Albumin 4.5 g/dL (3.9-5) 05/01/18 09:37 Albumin/Globulin Ratio 1.6 % 05/01/18 09:37 Triglycerides 96 mg/dL (2-149) 05/02/18 07:18 Cholesterol 173 mg/dL (50-199) 05/02/18 07:18 LDL Cholesterol Direct 138 mg/dL (50-130) H 05/02/18 07:18 HDL Cholesterol 40 mg/dL (40-59) 05/02/18 07:18 Cholesterol/HDL Ratio 4.32 % 05/02/18 07:18 Vitamin B12 440.0 pg/mL (211-911) 05/03/18 13:35 TSH 1.060 mlU/mL (0.270-4.200) 05/03/18 13:35
[2018-05-06 14:05] LABS: INR 0.89 (0.87-1.13)
--- NOTE | 2018-05-06 20:11 | Progress Note ---
Assessment and Plan 62 year old male with hx of eye pain, left facial numbness, left dysmetria, nausea and vomiting. MRI and MRA are unremarkable. CTA head and neck are normal. The patient has definite posterior fossa signs and symptoms. If not ischemic, possibly inflammatory or neoplastic in origin. MRI with contrast was also neg. Symptoms of ataxia remain. All studies have failed to reveal a structural or inflammatory lesion. Inflammation in the form of neuromyelitis optica is a possibility, although one would still expect to see some evidence of T2/flair changes on MRI. Plan - LP scheduled. Will try to get routine studies, as well as JOSÉ MIGUEL level, oligoclonal bands, IgG synthesis rate, and a paraneoplastic panel. Will check ESR and GARCIA in serum. Subjective Date of service: 05/06/18 Principal diagnosis: ataxia, facial numbness Interval history: 62 year old male with hx of eye pain, left facial numbness, left dysmetria, ataxia, nausea and vomiting. Today the patient feels that his nausea is much better. No further vomiting. Notes diplopia at a distance, occasionally skewed. facial numbness, dysmetria and ataxia persist. Feels a bit better, but main symptoms are still there. Objective - Exam Narrative Exam: 6General - Sitting in bed comfortably. Neurological exam - speech fluent. Oriented times 3. CN's - EOMs full. no nystagmus. Face symmetric, tongue midline. Hearing intact V-2,3 on left with numbness. No obvious change in EOMs. no occulomotor weakness detected. Motor - 5/5 throughout. No drift. Reflexes - trace throughout. Sensory - intact in all 4 limbs. Intact to temp. Coordination - FTN with marked dysmetria on the left. Fine finger movements and Mark intact bilaterally HKS a bit wobbley on left. - Vital Sign Vital Signs - 12hr 05/06/18 05/06/18 11:37 16:09 Temperature 97.7 F 98.3 F Pulse Rate 60 58 L Respiratory 18 16 Rate Blood Pressure 119/59 122/63 O2 Sat by Pulse 96 95 Oximetry - Laboratory Findings CBC and BMP: 05/06/18 13:32 05/01/18 09:37 Abnormal Lab Findings: Abnormal Labs 05/01/18 05/01/18 05/02/18 09:37 09:37 07:18 RBC 5.24 H Hgb 16.7 H Hct 48.6 H [place] % (Auto) 7.9 H BUN 7 L Creatinine 0.6 L Glucose 110 H LDL Cholesterol Direct 138 H
[2018-05-06] MEDS: ANTIVERT PO PRN (21:24)
[2018-05-07] MEDS: NEURONTIN PO SCH (06:03)
[2018-05-07] MEDS ORDERED: XYLOCAINE 1% 20 mL ONE (10:08)
[2018-05-07 12:15] LABS: Appearance,CSF Clear; Red Blood Cell,CSF 9 /mm3 (0-0); White Blood Cell,CSF 0 /mm3 (1-10)
[2018-05-07 12:16] LABS: Basophils CSF 0 %
[2018-05-07 13:19] LABS: Glucose,CSF 68 mg/dL
--- NOTE | 2018-05-07 13:23 | Fluoroscopy Report ---
FLUOROSCOPY LUMBAR PUNCTURE History: Optic neuritis, myelopathy. Description of procedure: Informed consent was obtained. Sterile technique was utilized. 1% lidocaine for skin anesthesia. Using fluoroscopy guidance, lumbar puncture was performed at the L3-4 level. One fluoroscopic image was captured. There was spontaneous return of clear CSF. 4 tubes of CSF were collected equaling approximately 8 cc. No complications. Impression: Successful fluoroscopy guided lumbar puncture.
[2018-05-07 13:36] VITALS: BP 104/55
--- NOTE | 2018-05-07 13:42 | Discharge Summary ---
Providers - Providers Date of Admission: 05/01/18 11:55 Attending physician: SHUN GAMING MD 05/01/18 11:55 Occupational Therapy Evaluate and Treat [CONS] Routine Comment: Reason For Exam: Neuro deficits Physical Therapy Evaluation and Treat [CONS] Routine Comment: Reason For Exam: Neuro deficits 05/01/18 11:56 Speech Therapy Evaluation and Treat [CONS] Routine Reason For Exam: swallow eval 05/01/18 12:13 Consult to Physician [CONS] Routine Comment: Consulting Provider: JOVANNI GU Physician Instructions: Reason For Exam: cva [facility] Reason for admission: unsteady gait, left leg weakness Condition: Stable Pertinent studies: CVA work up was done and negative for IC abnormality Procedures: LP was done Hospital course: 62 year old male with hx of eye pain, left facial numbness, left dysmetria, nausea and vomiting. MRI and MRA are unremarkable. CTA head and neck are normal. The patient has definite posterior fossa signs and symptoms. If not ischemic, possibly inflammatory or neoplastic in origin. MRI with contrast was also neg. Symptoms of ataxia remain. All studies have failed to reveal a structural or inflammatory lesion. Inflammation in the form of neuromyelitis optica is a possibility, although one would still expect to see some evidence of T2/flair changes on MRI. An LP was performed today and revealed 0 WBC, protein 30 and glucose 68. Oligoclonal bands, IgG synthesis rate and JOSÉ MIGUEL pending. A paraneoplastic panel is not able to be done. ESR is 4. Plan - Discharge today. Will follow-up with outpatient neurologist. Continue PT as an outpt. Disposition: - TO HOME OR SELFCARE Time spent for discharge: 32 minutes - Discharge Diagnoses (1) Left leg weakness Status: Acute (2) Gait disturbance Status: Acute (3) HTN (hypertension) Status: Acute Qualifiers: Hypertension type: essential hypertension Qualified Code(s): I10 - Essential (primary) hypertension Core Measure Documentation - Palliative Care Palliative Care/ Comfort Measures: Not Applicable - Core Measures Any of the following diagnoses?: none Exam - Physical Exam Narrative exam: Not in cardiopulmonary distress. The patient appeared well nourished and normally developed. Vital signs as documented. Head exam is unremarkable. No scleral icterus . Neck is without jugular venous distension, thyromegaly, or carotid bruits. Lungs are clear to auscultation. Cardiac exam reveals regular rate and Rhythm. First and second heart sounds normal. No murmurs, rubs or gallops. Abdominal exam reveals normal bowel sounds, no masses, no organomegaly and no ao rtic enlargement. Extremities are nonedematous and both femoral and pedal pulses are normal. ENGINEER FIRST ASSISTANT: Alert and oriented 3. Mild gait abnormality. - Constitutional Vitals: Temp Pulse Resp BP Pulse Ox 98.4 F 61 16 104/55 97 05/07/18 04:45 05/07/18 13:35 05/07/18 04:45 05/07/18 13:35 05/07/18 13:35 Plan Activity: advance as tolerated, fall precautions Weight Bearing Status: Full Weight Bearing Diet: low cholesterol, low salt Special Instructions: physical therapy Follow up with: PRADIP MASON MD [Primary Care Provider] - 3-5 Days NEIL ARREGUIN MD [Staff Physician] - 7 Days Other Discharge Orders: Physicial Therapy (Amb) Location: None Selected
--- NOTE | 2018-05-07 15:37 | Procedure Note ---
Date of procedure: 05/07/18 Pre-op diagnosis: MS, myelitis Post-op diagnosis: same Procedure: flouro guided lumbar puncture Anesthesia: local Surgeon: DANIAL CHI Estimated blood loss: none Pathology: list (4 csf tubes) Specimen disposition: to lab Condition: stable Disposition: floor
--- NOTE | 2018-05-07 17:14 | Progress Note ---
Assessment and Plan 62 year old male with hx of eye pain, left facial numbness, left dysmetria, nausea and vomiting. MRI and MRA are unremarkable. CTA head and neck are normal. The patient has definite posterior fossa signs and symptoms. If not ischemic, possibly inflammatory or neoplastic in origin. MRI with contrast was also neg. Symptoms of ataxia remain. All studies have failed to reveal a structural or inflammatory lesion. Inflammation in the form of neuromyelitis optica is a possibility, although one would still expect to see some evidence of T2/flair changes on MRI. An LP was performed today and revealed 0 WBC, protein 30 and glucose 68. Oligoclonal bands, IgG synthesis rate and JOSÉ MIGUEL pending. A paraneoplastic panel is not able to be done. ESR is 4. Plan - Discharge today. Will follow-up with outpatient neurologist. Continue PT as an outpt. Subjective Date of service: 05/07/18 Principal diagnosis: ataxia, facial numbness Interval history: 62 year old male with hx of eye pain, left facial numbness, left dysmetria, ataxia, nausea and vomiting. Today the patient feels that his nausea is much better. No further vomiting. Notes diplopia at a distance, occasionally skewed. facial numbness, dysmetria and ataxia persist. Feels a bit better, but main symptoms are still there. He was able to walk in the [place] with the therapist and a gait belt. Objective - Exam Narrative Exam: 6General - Sitting in bed comfortably. Neurological exam - speech fluent. Oriented times 3. CN's - EOMs full. no nystagmus. Face symmetric, tongue midline. Hearing intact V-2,3 on left with numbness. No obvious change in EOMs. no occulomotor weakness detected. Motor - 5/5 throughout. No drift. Reflexes - trace throughout. Sensory - intact in all 4 limbs. Intact to temp. Coordination - FTN with marked dysmetria on the left. Fine finger movements and Mark intact bilaterally HKS a bit wobbley on left. - Vital Sign Vital Signs - 12hr 05/07/18 13:35 Pulse Rate 61 Blood Pressure 104/55 O2 Sat by Pulse 97 Oximetry - Laboratory Findings CBC and BMP: 05/06/18 13:32 05/01/18 09:37 Abnormal Lab Findings: Abnormal Labs 05/01/18 05/01/18 05/02/18 09:37 09:37 07:18 RBC 5.24 H Hgb 16.7 H Hct 48.6 H [place] % (Auto) 7.9 H BUN 7 L Creatinine 0.6 L Glucose 110 H LDL Cholesterol Direct 138 H
--- NOTE | 2018-05-08 13:14 | Magnetic Resonance Report ---
PROCEDURE: MR LUMBAR SPINE WO CON TECHNIQUE: MRI was performed of the lumbar spine using the following pulse sequences: Axial: T1 and T2 Sagittal: T1, T2 and STIR HISTORY: Ataxia COMPARISONS: None FINDINGS: The lumbar vertebral bodies have normal height and lumbar lordosis is preserved. There is a 9 mm (gra de 1) anterolisthesis of L5 on S1 secondary to bilateral pars defects. This level will be described i n more detail below. The paraspinous soft tissues are unremarkable. The conus medullaris is in a norm al location and has a normal signal intensity and appearance. The following levels were evaluated in the axial plane: T 12-L1: No disc bulge or protrusion. The facet joints appear well preserved. No spinal or foraminal stenosis. Mild Schmorl's node formation on both sides of the disc. L1-L2: Mild Schmorl's node formation at both sides of the disc and reactive marrow changes. Endplate osteophyte formation. Diffuse disc desiccation. No disc bulge or protrusion. The facet joints appear well preserved. No spinal or foraminal stenosis. L2-L3: No disc bulge or protrusion. The facet joints appear well preserved. No spinal or foraminal st enosis. L3-L4: No disc bulge or protrusion. The facet joints appear well preserved. No spinal or foraminal st enosis. L4-L5: No disc bulge or protrusion. Severe bilateral facet arthropathy. There is severe right and mod erate left neural foraminal stenosis. L5-S1: Diffuse disc desiccation and severe loss of disc height. Reactive marrow endplate changes. Mahendra ateral pars defects and severe bilateral facet arthropathy. Unroofing of the posterior margin of the disc and a small broad-based posterior disc bulge. Severe bilateral neural foraminal stenosis. Modera te spinal stenosis. IMPRESSION: 1. There is advanced degenerative disc and facet disease at L5-S1. There is also bilateral spondyloly sis with grade 1 spondylolisthesis. There is resultant severe bilateral foraminal stenosis and modera te spinal stenosis. 2. Severe bilateral facet arthropathy at L4-5 with severe right and moderate left neural foraminal st enosis 3. Degenerative disc disease at L1-2 This document is electronically signed by Radha Chambers MD., May 06 2018 06:55:41 PM ET
--- NOTE | 2018-05-08 13:14 | Magnetic Resonance Report ---
PROCEDURE: MR THORACIC SPINE WO CON TECHNIQUE: MRI was performed of the thoracic spine using the following pulse sequences: Axial: T1 and T2 Sagittal: T2, STIR, T1 HISTORY: ataxia COMPARISONS: None FINDINGS: The thoracic vertebrae are normal in height, alignment and signal intensity. There is mild multilevel Schmorl's node formation of the mid to lower thoracic spine. There is a small broad based posterior disc bulge is at T2-3. Otherwise, the thoracic discs are well preserved.? The thoracic spinal cord de anda s normal signal. There is no spinal or foraminal stenosis. There is no evidence of fracture or sublux ation. The paraspinous soft tissues are unremarkable. IMPRESSION: 1. Small broad-based posterior disc bulge at T2-3 2. Mild multilevel Schmorl's node formation at the mid to lower thoracic spine. This document is electronically signed by Radha Chambers MD., May 06 2018 08:20:56 PM ET
[2018-05-12 23:04] LABS: ANA Screen, IFA Negative (Negative)
== END 2018-05-07 17:34 | disposition home or self-care (01) | DRG 59 ==
LOC: ED 09:25 → 4A 11:55
PROVIDERS: ADMIT Internal Medicine; ATTEND Internal Medicine
PROC: 009U3ZX Drainage of Spinal Canal, Percutaneous Approach, Diagnostic (ICD-10-PCS; principal; 2018-05-07)
PROC: B01B1ZZ Fluoroscopy of Spinal Cord using Low Osmolar Contrast (ICD-10-PCS; 2018-05-07)
DX: G36.0 Neuromyelitis optica [Devic] (principal); B19.10 Unspecified viral hepatitis B without hepatic coma; G35 Multiple sclerosis; G95.9 Disease of spinal cord, unspecified; M62.81 Muscle weakness (generalized); E66.9 Obesity, unspecified; R26.0 Ataxic gait; R42 Dizziness and giddiness; R26.9 Unspecified abnormalities of gait and mobility; E11.9 Type 2 diabetes mellitus without complications; I10 Essential (primary) hypertension; F17.210 Nicotine dependence, cigarettes, uncomplicated; R11.2 Nausea with vomiting, unspecified; Z68.35 Body mass index [BMI] 35.0-35.9, adult; Z83.3 Family history of diabetes mellitus; Z82.3 Family history of stroke; Z82.49 Family history of ischemic heart disease and other diseases of the circulatory system; Z79.82 Long term (current) use of aspirin
CPT/HCPCS: 36415; 62270; 70450; 70496; 70498; 70544; 70551; 70552; 71045; 72146; 72148; 72156; 74019; 77003; 80048; 80061; 80076; 82140; 82607; 82947; 82962; 83735; 83880; 84160; 84443; 84484; 85025; 85049; 85610; 85652; 85670; 85730; 86038; 86592; 87116; 89051; 93005; 93010; 93306; 93880; 96374; 96375; 96376; 99291; 99406; G0378; A9270-GY; A9577; J2060; J2405; J2765; Q9967